=== PATIENT | female | born 1945 | race Caucasian/White ===

== ENCOUNTER 2017-09-20 08:43 | Emergency (ER) | payer MEDICARE, OTHER ==
[~2017-09-20] VITALS: Ht 162.6 cm; Wt 53.0 kg
[~2017-09-20 08:43] MED LIST: CALTTAB5 PO; DYAZ37.52 PO; TAB-TAB PO
[2017-09-20 08:46] VITALS: BP 133/63; PULSE 80; RESP 16; TEMP 97.9; O2SAT 99
[2017-09-20] MEDS ORDERED: SULF1SOL4 EACH EYE (09:14)
--- NOTE | 2017-09-20 09:15 | PD ---
HPI Chief Complaint: Eye Problems/Injury Time Seen by Provider: 09:08 Travel History International Travel<30 days: No Contact w/Intl Traveler<30days: No Traveled to known affect area: No History of Present Illness HPI 72-year-old female here with bilateral eye irritation and redness since this morning. She denies eye pain or visual disturbance. She reports exposure to pinkeye. Severity is mild. Alleviating factors. PFSH Past Medical History Medical History: Denies Significant Hx Autoimmune Disease: No Blood Disorders: No Cancer: No Cardiovascular Problems: No Endocrine: No Genitourinary: No Musculoskeletal: No Neurologic: No Psychiatric: No Respiratory: No Past Surgical History Abdominal Surgery: No Cardiac Surgery: No Ear Surgery: No Endocrine Surgery: No Eye Surgery: No Genitourinary Surgery: No Gynecologic Surgery: Yes Oral Surgery: Yes Thoracic Surgery: No Other Surgery: Yes ([facility]) Social History Alcohol Use: Yes (DAILY [employer] WINE) Tobacco Use: No Substance Use: No Allergies-Medications (Allergen,Severity, Reaction): Coded Allergies: No Known Allergies (Verified Allergy, Mild, 09/20/17) Reported Meds & Prescriptions Reported Meds & Active Scripts Active Bleph-10 Opth Drops (Sulfacetamide Sodium) 10 % Soln 1 Drop EACH EYE QID 7 Days Reported Estradiol 0.5 Mg Tab Unknown Dose PO DAILY [Hctz] Unknown Dose Review of Systems Except as stated in HPI: all other systems reviewed are Neg Eyes: No: Visual changes Physical Exam Narrative GENERAL: Well-nourished, well-developed patient. SKIN: Focused skin assessment warm/dry. HEAD: Normocephalic. EYES: No scleral icterus. Mild injection bilaterally. Pupils are equal, round , reactive to light. EOMs intact. NECK: Supple, trachea midline. No JVD or lymphadenopathy. Data Data Last Documented VS Vital Signs Date Time Temp Pulse Resp B/P (MAP) Pulse Ox O2 Delivery O2 Flow Rate FiO2 09/20/17 08:46 97.9 80 16 133/63 (86) 99 MDM Medical Decision Making Medical Screen Exam Complete: Yes Emergency Medical Condition: Yes Differential Diagnosis Bacterial conjunctivitis, viral conjunctivitis, allergic conjunctivitis Narrative Course 72-year-old female here with bilateral eye irritation and redness since this morning. On exam patient has what is consistent with conjunctivitis. She has no visual acuity changes. She has no eye pain. Diagnosis Primary Impression: Conjunctivitis Qualified Codes: H10.33 - Unspecified acute conjunctivitis, bilateral Referrals: Primary Care Physician Additional Instructions: Use the eyedrops as directed. Follow-up with the primary doctor. Scripts Sulfacetamide Opth Drops (Bleph-10 Opth Drops) 10 % Soln 1 DROP EACH EYE QID for Infection for 7 Days, #1 BOTTLE 0 Refills Prov: Kelsey Delong 09/20/17 Disposition: 01 DISCHARGE HOME Condition: Stable Kelsey Delong Sep 20, 2017 09:15
[2017-09-20] MEDS ORDERED: HCTZ (09:19)
[2017-09-20] MEDS ORDERED: ESTR0.5T PO (09:19)
== END 2017-09-20 09:27 | disposition home or self-care (01) ==
LOC: PHEFT 08:43
DX: H10.33 Unspecified acute conjunctivitis, bilateral (principal); Z79.899 Other long term (current) drug therapy
CPT/HCPCS: 99283